=== PATIENT | female | born 1995 | race Caucasian/White ===

== ENCOUNTER 2016-11-30 20:48 | Emergency (ER) | payer OTHER ==
[~2016-11-30] VITALS: Ht 157.5 cm; Wt 98.9 kg
[2016-11-30 21:01] VITALS: BP 115/66
--- NOTE | 2016-11-30 21:07 | NUR ---
PT TAKEN TO BED 4
--- NOTE | 2016-11-30 21:34 | NUR ---
Dr. Koenig evaluating patient at bedside.
[2016-11-30] MEDS ORDERED: ONDANSETRON 4 MG ODT PO ONE (21:40)
[2016-11-30] MEDS ORDERED: IBUPROFEN 800 MG TAB PO ONE (21:40)
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
[2016-11-30 22:30] VITALS: BP 110/60
--- NOTE | 2016-11-30 22:30 | NUR ---
Patient discharged with v/s stable. Written and verbal after care instructions given and explained BY DR YANG Patient alert, oriented and verbalized understanding of instructions. Ambulatory with steady gait. All questions addressed prior to discharge. ID band removed. Patient advised to follow up with PMD. Rx of FLEXERIL AND MOTRIN given. Patient educated on indication of medication including possible reaction and side effects. Opportunity to ask questions provided and answered.
== END 2016-11-30 22:30 | disposition home or self-care (01) ==
LOC: MED 20:48
DX: S16.1XXA Strain of muscle, fascia and tendon at neck level, initial encounter (principal); V89.2XXA Person injured in unspecified motor-vehicle accident, traffic, initial encounter; Y93.89 Activity, other specified; Y92.488 Other paved roadways as the place of occurrence of the external cause; Y99.8 Other external cause status
CPT/HCPCS: 72040; 72080; 99284; S0119